=== PATIENT | female | born 1970 | race American Indian/Alaskan Native ===

== ENCOUNTER 2019-08-28 09:28 | Outpatient (CLI) | payer MEDICAID ==
--- NOTE | 2019-08-28 15:25 | Magnetic Resonance Report ---
BILATERAL BREAST MR WITHOUT AND WITH GADOLINIUM INDICATION: Increased risk based on family history history of breast cancer. COMPARISONS: 06/24/2019 bilateral mammogram TECHNIQUE: Axial 1.0 mm T1 without, axial high-resolution 2.0 mm T2 and axial 1.0 mm dynamic vibrant high-resolution postcontrast T1 fat saturation sequences on a 1.5 Flory magnet. The examination was p erformed with an 8-channel dedicated [place] breast coil. Post-processing with CAD and subtraction was performed on an [employer] workstation. 18.0 cc of MultiHance was injected without incident for the c ontrast portion of the exam. Consent was obtained prior to the administration of the contrast. FINDINGS: RIGHT BREAST: Minimal background parenchymal enhancement. No mass or suspicious enhancement. A benign 7 mm lymph node at 6:00 11 cm from the nipple. No suspicious right axillary or right internal mammar y lymph nodes. LEFT BREAST: Minimal background parenchymal enhancement. No mass or suspicious enhancement. No suspic ious left axillary or left internal mammary lymph nodes. IMPRESSION: Normal study. BI-RADS Category 1: Negative Signer Name: Des Leal MD Signed: 08/28/2019 3:21 PM Workstation Name: [id number]
== END 2019-08-28 09:29 | disposition home or self-care (01) ==
LOC: SPVIMAG 09:28
PROVIDERS: ATTEND Surgery
DX: R92.8 Other abnormal and inconclusive findings on diagnostic imaging of breast (principal); I10 Essential (primary) hypertension; J45.909 Unspecified asthma, uncomplicated; Z80.3 Family history of malignant neoplasm of breast
CPT/HCPCS: A9577; C8908; 77049

== ENCOUNTER 2020-08-19 10:12 | Outpatient (CLI) | payer MEDICAID ==
--- NOTE | 2020-08-19 16:20 | Magnetic Resonance Report ---
BILATERAL BREAST MRI WITH AND WITHOUT CONTRAST CLINICAL INFORMATION/INDICATION: Patient presents for high-risk screening breast MRI secondary to fam donell history of breast cancer. TECHNICAL: Coronal STIR, axial T1 and T2-weighted fat sat images were obtained precontrast. Gadoliniu m-based contrast was injected intravenously and serial axial T1 weighted images with fat saturation w ere obtained. 3-D MIP projections, kinetic analysis and subtraction imaging was utilized to evaluate. A dedicated 8-channel breast coil was used for image acquisition. COMPARISON: Prior mammogram 06/30/2020 and breast MRI 08/28/2019 FINDINGS: Right breast: There is heterogeneously dense fibroglandular tissue. There is mild background parenchy mal enhancement. No suspicious areas of enhancement or architectural distortion identified in the rig ht breast. There is no right axillary or internal mammary adenopathy. Left breast: There is heterogeneously dense fibroglandular tissue. There is mild background parenchym al enhancement. No suspicious areas of enhancement or architectural distortion identified in the left breast. There are a few benign cysts in the left breast, and a stable small benign-appearing nodule in the medial left breast. There has been no significant change compared with the prior examination. There is no left axillary or internal mammary adenopathy. IMPRESSION: 1. No suspicious MRI abnormality identified in either breast. Follow up recommendation: Back to schedule. BI-RADS Category 2: Benign. Signer Name: Katina James MD Signed: 08/19/2020 4:15 PM Workstation Name: [id number]
== END 2020-08-19 10:13 | disposition home or self-care (01) ==
LOC: SPVIMAG 10:12
PROVIDERS: ATTEND Surgery
DX: Z12.31 Encounter for screening mammogram for malignant neoplasm of breast (principal); N60.02 Solitary cyst of left breast; Z80.3 Family history of malignant neoplasm of breast
CPT/HCPCS: A9577; C8908; 77049

== ENCOUNTER 2021-07-02 10:59 | Outpatient (CLI) | payer MEDICAID ==
--- NOTE | 2021-07-02 14:32 | Mammography Report ---
DIGITAL SCREENING MAMMOGRAM WITH CAD, 07/02/2021 CLINICAL INFORMATION / INDICATION: Routine screening mammography. TECHNIQUE: Digital bilateral 2D mammography was obtained in the craniocaudal and mediolateral obliqu e projections. This examination was interpreted with the benefit of Computer-Aided Detection analysis . COMPARISON: 06/30/2020, 02/09/2018 FINDINGS: Breast Density: The breasts are heterogeneously dense, which may obscure small masses. No dominant mass, suspicious calcifications, or architectural distortion in the right breast. There is a new 11 mm well-circumscribed round mass in the left breast at approximately 9:00, middle d epth. There are benign scattered calcifications noted bilaterally. IMPRESSION: New left breast mass, possibly a cyst. Recommend further evaluation with left breast ultr asound. Follow up recommendation: Ultrasound BI-RADS Category 0: Incomplete. Needs additional imaging evaluation and/or prior mammograms for yulisa pattonon. A "normal" or negative report should not discourage follow up or biopsy of a clinically significant f inding. A written summary of these findings will be mailed to the patient. The patient will be entered into a mammography reporting system which will generate a reminder letter for the patient's next appointmen t at the appropriate interval. The [employer] recommends yearly mammograms starting at age 40 and continuing as l annalise as a woman is in good health. Breast MRI is recommended for women with an approximate 20-25% or greater lifetime risk of breast cancer, including women with a strong family history of breast or ova raza cancer or who have been treated for Hodgkin's disease. Signer Name: June Yip MD Signed: 07/02/2021 2:28 PM Workstation Name: [id number]
== END 2021-07-02 11:00 | disposition home or self-care (01) ==
LOC: SPVWC 10:59
PROVIDERS: ATTEND Surgery
DX: Z12.31 Encounter for screening mammogram for malignant neoplasm of breast (principal); N63.21 Unspecified lump in the left breast, upper outer quadrant
CPT/HCPCS: 77063; 77067

== ENCOUNTER 2021-07-22 15:56 | Outpatient (CLI) | payer MEDICAID ==
--- NOTE | 2021-07-22 16:47 | Ultrasound Report ---
ULTRASOUND BREAST LEFT LIMITED, 07/22/2021 CLINICAL INFORMATION / INDICATION: ABNORMAL LEFT MAMMO R92.2. TECHNIQUE: Targeted ultrasound evaluation was performed of the area of interest. COMPARISON: Recent mammogram 04/01/2021 FINDINGS: Sonographic evaluation of the left breast demonstrates a solid round mass at 9:00, 4 cm from nipple, measuring 7 x 5 mm. The margins of the mass are slightly irregular. This mass does correlate with abn ormality seen on recent screening mammogram. Biopsy is recommended. IMPRESSION: 7 mm solid mass at 9:00 is present. Recommend ultrasound-guided biopsy for further evalua tion. Follow up recommendation: Biopsy BI-RADS Category 4: Suspicious for Malignancy. A normal or "negative" report should not preclude biopsy or follow-up of a clinically suspicious find ing. Signer Name: June Yip MD Signed: 07/22/2021 4:42 PM Workstation Name: [id number]
== END 2021-07-22 15:57 | disposition home or self-care (01) ==
LOC: SPVWC 15:56
PROVIDERS: ATTEND Surgery
DX: N63.22 Unspecified lump in the left breast, upper inner quadrant (principal)

== ENCOUNTER 2021-08-11 10:07 | Outpatient (CLI) | payer MEDICAID ==
--- NOTE | 2021-08-13 09:51 | Magnetic Resonance Report ---
Bilateral breast MRI with and without contrast. History: FAMILY HX OF BREAST CANCER, recent suspicious left breast lesion Procedure: Axial T1 and T2-weighted fat-sat images were obtained precontrast. 19 cc Clariscan was in jected intravenously and serial axial T1-weighted images with fat saturation were obtained postcontra st. 3-D MIP projections, Kinetic analysis and subtraction imaging was utilized to evaluate. A BONESUPPORTat ed 8 channel breast coil was utilized for image acquisition. Comparison: Left mammogram 07/02/2021, left breast ultrasound 07/22/2021, bilateral mammogram 06/30/2020 , bilateral mammogram 06/24/2019, MR breast 08/19/2020 Findings: Background level of enhancement is mild. No suspicious axillary or clavicular nodes are identified. No abnormal bone marrow signal is seen. No significant chest wall enhancement is noted. Right breast: No suspicious lesions are seen. Left breast: Minimal probable intramammary nodes are stable. There are 2 benign-appearing cysts again seen with minimally enhancing alves, both slightly smaller than on previous MR. No other lesions are seen. No significant areas of enhancement are noted. No other change is noted. Impression: No suspicious enhancing lesion is seen in either breast. I do not find a good MR correlat e for the recent sonographic lesion at 9:00, 4 cm from the nipple. Mammographically, at this general location there is a stable nodule. Additionally, the recently noted mammographic nodule in the medial left breast more centrally appears to have been present in 2019 and I believe corresponds with one o f the small benign-appearing and decreasing cysts noted by MR. I believe these ultrasound probably co rresponds to one of these benign lesions despite the indeterminate appearance sonographically. The co mplete lack of suspicious enhancement of any lesion in this area by MR, together with mammographic st ability, would strongly favor a benign process. I would simply recommend 6 month left breast ultrasound follow-up given this constellation of finding s. BIRADS: 3: Probably benign Signer Name: Dalton Hobbs MD Signed: 08/13/2021 9:47 AM Workstation Name: [id number]
== END 2021-08-11 10:08 | disposition home or self-care (01) ==
LOC: SPVIMAG 10:07
PROVIDERS: ATTEND Surgery
DX: Z12.31 Encounter for screening mammogram for malignant neoplasm of breast (principal); Z80.3 Family history of malignant neoplasm of breast
CPT/HCPCS: A9575; C8908; 77049